=== PATIENT | female | born 1955 | race American Indian/Alaskan Native ===

== ENCOUNTER 2020-03-14 11:49 | Observation (INO) ==
[2020-03-14] MEDS ORDERED: NS 0.9% 1000 ml BAG 1,000 ML IV ONE ×2 (12:37→14:41)
[2020-03-14] MEDS ORDERED: Metoclopramide 5 MG/ML VIAL (10 mg) IV ONE (12:56)
[2020-03-14] MEDS ORDERED: diPHENhydraMINE IV 50 MG/ML 1 ml VIAL (BENADRYL) IV ONE (12:56)
[2020-03-14 13:04] LABS: ABS Lymphocytes 1.1 10^3/ul (1.0-4.8); ABS Monocytes 0.7 10^3/ul (0-0.8); Eosinophil % 0.2 %; Hematocrit 40 % (35-47); Hemoglobin 13.3 g/dL (12.0-16.0); Lymphocyte % 7.7 %; Mean Corpuscular HGB Conc 33 g/dL (31-36); Mean Corpuscular Hemoglobin 30 pg (27-31); Mean Corpuscular Volume 90 fL (80-97); Mean Platelet Volume 8.1 fL (7.4-10.4); Nucleated Red Blood Cells % 0.1; Platelet Count 217 10^3/uL (150-450); Red Blood Count 4.45 10^6 /uL (3.70-4.87); Red Cell Distribution Width 15 % (10-15); White Blood Count 14.6 10^3/uL (3.5-10.8)
[2020-03-14 13:35] LABS: CO2 Carbon Dioxide 23 mmol/L (22-32); Calcium 8.7 mg/dL (8.6-10.3); Chloride 107 mmol/L (101-111); Sodium 138 mmol/L (135-145)
[2020-03-14 13:39] LABS: Troponin I 0.05 ng/mL (<0.03)
[2020-03-14 13:41] LABS: ALT 14 U/L (7-52); Albumin/Globulin Ratio 1.4 (1-3); Alkaline Phosphatase 69 U/L (34-104); Anion Gap 8 mmol/L (2-11); BUN/Creatinine Ratio 33.8 (8-20); Blood Urea Nitrogen 23 mg/dL (6-24); EGFR African American 106.1 (>60); EGFR Non-African American 87.7 (>60); Globulin 2.8 g/dL (2-4); Glucose 95 mg/dL (70-100); Total Protein 6.8 g/dL (6.4-8.9)
[2020-03-14] MEDS ORDERED: NS 0.9% 1000 ml BAG 1,000 ML IV SCH (14:45)
[2020-03-14 16:51] LABS: AST Redraw 17 U/L (13-39); Potassium Redraw 3.9 mmol/L (3.5-5.0)
[2020-03-14 17:09] LABS: Troponin I 0.08 ng/mL (<0.03)
[2020-03-14] MEDS: Enoxaparin 40 MG/0.4 ML SYR(*) SUBCUT SCH ×2 (17:58→18:00)
[2020-03-14 20:01] LABS: Troponin I 0.06 ng/mL (<0.03)
[2020-03-15 06:03] LABS: ABS Eosinophils 0.2 10^3/ul (0-0.6); ABS Lymphocytes 1.7 10^3/ul (1.0-4.8); ABS Monocytes 0.5 10^3/ul (0-0.8); Eosinophil % 2.5 %; Hematocrit 34 % (35-47); Hemoglobin 11.6 g/dL (12.0-16.0); Lymphocyte % 25.9 %; Mean Corpuscular HGB Conc 34 g/dL (31-36); Mean Corpuscular Hemoglobin 31 pg (27-31); Mean Corpuscular Volume 89 fL (80-97); Platelet Count 194 10^3/uL (150-450); Red Blood Count 3.79 10^6 /uL (3.70-4.87); Red Cell Distribution Width 15 % (10-15); White Blood Count 6.5 10^3/uL (3.5-10.8)
[2020-03-15 06:24] LABS: BUN/Creatinine Ratio 26.7 (8-20); Calcium 8.6 mg/dL (8.6-10.3); EGFR African American 122.6 (>60); EGFR Non-African American 101.3 (>60); Potassium 3.8 mmol/L (3.5-5.0)
[2020-03-15 06:26] LABS: Troponin I 0.02 ng/mL (<0.03)
[2020-03-15 11:47] VITALS: BP 137/83
== END 2020-03-15 12:45 | disposition home or self-care (01) ==
LOC: ED 11:49 → MEDTELE 11:49
PROVIDERS: ADMIT Nurse Practitioner Family; ATTEND Internal Medicine